=== PATIENT | male | born 1990 | race Caucasian/White ===

== ENCOUNTER 2023-03-09 13:29 | Outpatient (CLI) | payer BC, SELFPAY | END 2023-03-09 13:30 | disposition home or self-care (01) | LOC: NFLDREF 13:31 | PROVIDERS: PCP Family Medicine; Visit Provider Family Medicine | DX: R61 Generalized hyperhidrosis (principal); R73.03 Prediabetes; E66.9 Obesity, unspecified | CPT/HCPCS: 84443 ==

== ENCOUNTER 2023-08-21 12:41 | Emergency (ER) | payer BC, SELFPAY ==
[2023-08-21 12:47] VITALS: BP 162/109; PULSE 123; RESP 18; TEMP 35.6; O2SAT 98; BMI 31.6
--- NOTE | 2023-08-21 13:39 | ED.WOUNDLAC ---
HPI - Wound/Laceration General Chief Complaint: Laceration/Wound Stated Complaint: right hand laceration Time Seen by Provider: 08/21/23 13:16 History of Present Illness HPI narrative: This 32-year-old male comes in with a laceration to the palm of his right hand. He was using a screwdriver to pry something open in the screwdriver slipped causing a laceration on the palm of his hand. He comes in reporting not much pain but states that it continues to bleed. His last tetanus was administered 12 years ago. Related Data Previous Rx's Medication Instructions Recorded colchicine 0.6 mg capsule 0.6 mg PO QDAY #30 caps 05/04/23 Allergies Allergy/AdvReac Type Severity Reaction Status Date / Time No Known Allergies Allergy Unknown Verified 08/21/23 12:51 Review of Systems Status of ROS: Reports: 10 or more systems reviewed and unremarkable except as noted in History and below Narrative: Constitutional: No fevers, no weight gain or loss. Eyes: No discharge. No vision changes. HENT: No congestion, no sore throat, no ear pain. Cardiovascular: No chest pain, no palpitations. Respiratory: No shortness of breath, no wheezes, no cough. Gastrointestinal: No abdominal pain, no vomiting, no diarrhea. Genitourinary: No dysuria, no hematuria. Musculoskeletal: Normal range of motion. Skin: No rashes, no pruritis. Neurological: No dizziness, weakness, sensory change, speech change. Endo/Heme/Allergies: No bruising or bleeding. No polydipsia. Pysch: no suicidality, no anxiety, no insomnia. All other systems reviewed and are negative. [facility] Surgical History (Updated 05/14/22 @ 17:51 by Myrna Gurrola) History of hernia repair ?Z98.890 - Other specified postprocedural states (ICD-10) ?Z87.19 - Personal history of other diseases of the digestive system (ICD-10) Social History Smoking Status: Never smoker Little interest or pleasure in doing things: not at all Feeling down, depressed, or hopeless: not at all Exam Narrative: Exam Narrative: Constitutional: Well-developed, well-nourished, no acute distress. HEENT: Normocephalic, atraumatic. Neck: Normal range of motion. Nontender. Supple. Heart: Intact distal pulses. Lungs: No chest discomfort. No wheezes, rhonchi, or rales. Abdomen: Nontender. Back: Normal range of motion. Extremities: Normal range of motion. 1.5 cm linear laceration in the palm of the right hand. No nerve or tendon dysfunction. Skin: Intact. No rash. Warm. No erythema or pallor. Neurologic: No altered sensation. No weakness. Alert and oriented. Psychiatric: No suicidality. No anxiety or depression. No insomnia. Nursing notes and vitals signs are reviewed. Const: Vital Signs, click to edit/add: Vital Signs - 24 hr 08/21/23 12:47 Temperature 96.0 F L Pulse Rate [Right Pulse Oximeter] 123 H Respiratory Rate 18 Blood Pressure [Ri ght Upper Arm] 162/109 H Pulse Oximetry 98 Oxygen Delivery Me thod Room Air Course Vital Signs Vital signs: Initial Vital Signs Temperature 96.0 F L 08/21/23 12:47 Temperature Source Temporal Artery Scan 08/21/23 12:47 Pulse Rate 123 H 08/21/23 12:47 Pulse Rhythm Regular 08/21/23 12:47 Pulse Strength 2+ Slightly Diminished 08/21/23 12:47 Respiratory Rate 18 08/21/23 12:47 Blood Pressure 162/109 H 08/21/23 12:47 Blood Pressure Mean 126 H 08/21/23 12:47 Blood Pressure Position Sitting 08/21/23 12:47 Pulse Oximetry 98 08/21/23 12:47 Oxygen Delivery Method Room Air 08/21/23 12:47 Vital Signs Temperature 96.0 F L 08/21/23 12:47 Pulse Rate 123 H 08/21/23 12:47 Respiratory Rate 18 08/21/23 12:47 Blood Pressure 162/109 H 08/21/23 12:47 Pulse Oximetry 98 08/21/23 12:47 Oxygen Delivery Method Room Air 08/21/23 12:47 Temperature 96.0 F L 08/21/23 12:47 Pulse Rate 123 H 08/21/23 12:47 Respiratory Rate 18 08/21/23 12:47 Blood Pressure 162/109 H 08/21/23 12:47 Pulse Oximetry 98 08/21/23 12:47 Oxygen Delivery Method Room Air 08/21/23 12:47 Medications Administered Medications: Discontinued Medications Generic Name Dose Route Start Last Admin Trade Name Freq PRN Reason Stop Dose Admin Diphtheria/Tetanus/Acell Pertussis 0.5 ml 08/21/23 13:39 08/21/23 13:43 Tetanus/Diphth/Pertussis 0.5 Ml Syringe IM 08/21/23 13:40 0.5 ml .ONCE ONE Administration MDM - Wound/Laceration MDM Narrative Medical decision making narrative: This patient has a laceration to the palm of his right hand as described above. It does continue to lose bleeding as though he injured a vein. After anesthesia with 1% lidocaine the wound was cleansed and I placed 4 sutures in interrupted fashion using 4.0 Ethilon suture. This caused the bleeding to stop and approximated the wound edges nicely. Instructions regarding wound care were given with the need to return for suture removal in 7-10 days. A Band-Aid was applied. The patient did receive a tetanus vaccination today. Discharge Plan Discharge Clinical Impression: Laceration Patient Disposition: Home, Self-Care Condition: Improved Additional Instructions: Keep wound clean and dry. Return for suture removal in 7-10 days. Follow-up with MD otherwise as needed. Prescriptions: No Action colchicine 0.6 mg capsule 0.6 mg PO QDAY Qty: 30 11RF Patient Comments: just as needed Follow Up/Referrals: Reji Nance MD [Primary Care Provider] - Stand Alone Forms: [employer] Info Instructions
[2023-08-21] MEDS: TETANUS/DIPHTH/PERTUSSIS 0.5 ML SYRINGE IM (13:43)
[2023-08-21 13:56] VITALS: BP 162/109; PULSE 108; RESP 18; TEMP 35.6
== END 2023-08-21 13:58 | disposition home or self-care (01) ==
PROVIDERS: Emergency Provider Emergency Medicine Emergency Medical Services; PCP Family Medicine
DX: S61.411A Laceration without foreign body of right hand, initial encounter (principal); W29.8XXA Contact with other powered hand tools and household machinery, initial encounter; Z23 Encounter for immunization
CPT/HCPCS: 12001; 90471; 90715; 99283; 99284

== ENCOUNTER 2024-01-22 13:48 | Outpatient (CLI) | payer BC, SELFPAY | END 2024-01-22 13:49 | disposition home or self-care (01) | PROVIDERS: PCP Family Medicine; Visit Provider Family Medicine | DX: I10 Essential (primary) hypertension (principal); E78.5 Hyperlipidemia, unspecified; R73.03 Prediabetes; E66.9 Obesity, unspecified; M10.9 Gout, unspecified; F41.9 Anxiety disorder, unspecified | CPT/HCPCS: 80061; 82947 ==

== ENCOUNTER 2024-02-12 07:02 | Outpatient (CLI) | payer BC, SELFPAY | END 2024-02-12 07:03 | disposition home or self-care (01) | LOC: NFLDREF 11:39 | PROVIDERS: PCP Family Medicine; Visit Provider Family Medicine | DX: R73.03 Prediabetes (principal) | CPT/HCPCS: 80053; 82947 ==

== ENCOUNTER 2024-05-21 14:30 | Outpatient (CLI) | payer BC, SELFPAY ==
--- OUTSIDE RECORDS SUMMARY | 2024-05-24 18:43 | XMS_ITS | Clinical Summary ---
Author Organization [facility] Address [address] [place] [id number] Care Team Providers Care Calibration Checker Name Role Phone Elsewhere, Pcp Primary Care Provider Unavailabl e Source Comments Patient records contain information from all sites at [facility]. For routine questions regarding patient records, call [phone] during business hours, M-F 8:00 AM - 5:00 PM Central Time. Record requests for emergency care only can be directed to [phone] at any time.[facility] Allergies Active Allergy Reactions Criticality Noted Date Comments No Known Allergies Other (see comments) 012 Medications amLODIPine (NORVASC) 2.5 mg tablet Take 2 tablets (5 mg total) by mouth daily for 7 days. 14 tablet 9 Active Additional Information Patient not taking.Reported on 12/07/2023 colchicine (COLCRYS) 0.6 mg tablet 4 Active acetaminophen (TYLENOL) 500 mg tablet Take 2 tablets (1,000 mg total) by mouth every 6 (six) hours as needed for pain. 4 Active oxyCODONE (ROXICODONE) 5 mg immediate release tabletIndicatio ns:Acute Pain Exception Take 1 tablet (5 mg total) by mouth every 4 (four) hours as needed for moderate pain or score 4-6 of 10 Indication: Acute Pain Exception. 8 tablet 08/25/2023 5:07 PM ADMINISTRATIVE SERVICES COORDINATOR 4 Active mupirocin (Bactroban) 2 % ointmentIndicat ions:Paronychia Finger Left Apply 1 Application topically 3 (three) times a day. Apply to left thumb. 22 g 4 Active Active Problems Problem Noted Date Diagnosed Date Pain Joint Hand Right 09/04/2023 Bite Dog Hand Open Initial Right 08/24/2023 Infection Hand 08/24/2023 Hypertension Essential Primary 04/02/2018 Encounters Date Type Department Care Team Description 04/04/2024 4:30 PM CDT Office Visit Department of Family Medicine, [facility], in [place], [place] [address] [place] [address] Provider, Kat Verma APRN, C.N.P., D.N.P. Paronychia Finger Left (Primary Dx) Discharge Disposition: Home or Self Care 04/03/2024 Nurse Triage Department of Family Medicine, [facility], in [place], [place] [address] [place] [phone] Tory Andres R.N. Finger Pain from Last 3 Months Immunizations Name Administration Dates Next Due PPSV23 05/20/2021 Tdap 08/21/2023,05/30/2012 influenza vaccine quad (FLUZ ONE/FLUARIX) (6 months and older)(PF) 05/20/2021,07/23/2018 Family History Medical History Relation Name Comments Hypertension Brother Hypertension Mother Relation Name Status Comments Brother Mother Social History Tobacco Use Types Packs/Day Years Used Date Smoking Tobacco: Never Smokeless Tobacco: Never Tobacco Cessation:Counseling Given: No Alcohol Use Standard Drinks/Week Comments Yes 1 (1 standard drink = 0.6 oz pur e alcohol) [facility] Utilities Answer Date Recorded In the past 12 months has [facility] [employer], oil, or water [email or web address] threatened to shut off services in your home? No 08/24/2023 Humiliation, Afraid, Rape, and Kick questionnair e Answer Date Recorded Within the last year, have y ou been afraid of your partner or ex-partner? No 08/24/2023 Within the last year, have y ou been humiliated or emotionally abused in other ways by your partner or ex-partner? No Within the last year, have y ou been kicked, hit, slapped, or otherwise physically hurt by your partner or ex-partner? No 08/24/2023 Within the last year, have y ou been raped or forced to have any kind of sexual activity by your partner or ex-partner? No 08/24/2023 PHQ-2 Answer Date Recorded PHQ-2 Score 0 08/23/2023 Hunger Vital Sign Answer Date Recorded Within the past 12 months, y ou worried that your food would run out before you got the money to buy more. Never true 08/24/19 24 Within the past 12 months, t he food you bought just didn't last and you didn't have money to get more. Never true 08/24/2023 PRAPARE - Transportation Answer Date Re corded In the past 12 months, has l ack of transportation kept you from medical appointments or from getting medications? No 08/04 In the past 12 months, has l ack of transportation kept you from meetings, work, or from getting things needed for daily living? No 08/24/2023 Nutrition Answer Date Recorded Nutrition: EVOO Fat Source 13 01/27 Nutrition: Servings of Fruits/Vegetables per Day Not on file 01/28/2020 Dental Answer Date Recorded Dental: Regular Dentist Unknown 09/05/19 21 Housing Stability Answer Date Recorded What is your living situation today? I have a [facility] place to live 08/24/2023 Sex and Gender Information Value Date Recorded Sex Assigned at Male 10/24/2023 12:24 PM CDT Legal Sex Male 5:04 PM ADMINISTRATIVE SERVICES COORDINATOR Gender Identity Male 10/24/2023 12:24 PM CDT Sexual Orientation Straight 10/24/2023 12 :24 PM CDT Last Filed Vital Signs Vital Sign Reading Time Taken Comments Blood Pressure 127/85 04/04/2024 4:02 PM CDT Pulse 72 04/04/2024 4:02 PM CDT Temperature 36.1 C (97 F) 04/04/2024 4:02 PM CDT Respiratory Rate 16 08/25/2023 4:40 PM ADMINISTRATIVE SERVICES COORDINATOR Oxygen Saturation 98% 08/25/2023 4:40 PM ADMINISTRATIVE SERVICES COORDINATOR Inhaled Oxygen Concentration - - Weight 96.9 kg (213 lb 10 oz) 04/04/2024 4:02 PM CDT Height 177.8 cm (5' 10) 12/07/2023 1:57 PM CDT Body Mass Index 30.65 12/07/2023 1:57 PM CDT Plan of Treatment Health Maintenance Due Date Last Done Comments HIV Screening 1988 Hepatitis C Screening 1988 Lipid (Cholesterol) Screening 1988 Hepatitis B Vaccines (1 of 3 - 19+ 3-dose series) 11/12/2007 COVID-19 Vaccine ( - 2023-2 5 season) 2024 Influenza Vaccine (#1) 2024 , 07/23/2018 Office Visit for Blood Pressure Check / Re-check 04/04/2025 04/04/2024 DTaP,Tdap,and Td Vaccines (3 - Td or Tdap) 08/21/2033 08/21/2023, 05/30/2012 Pneumococcal vaccine (0-64 years) Aged Out 05/20/2021 No longer eligible b ased on patient's age to complete this topic Depression Screening (Annual PHQ-2) Completed 08/23/2023, 08/23/2023 HPV Vaccines Aged Out No longer eligi ble based on patient's age to complete this topic IPV Vaccines Aged Out No longer eligi ble based on patient's age to complete this topic Insurance [facility] Care Teams Calibration Checker Relationship Specialty Start Date End Date Elsewhere, Pcp PCP - General Family Medicine 04/02/18
--- OUTSIDE RECORDS SUMMARY | 2024-05-24 18:43 | XMS_ITS | Referral Summary ---
Author Organization [facility] Address [address] [place] [address] Care Team Providers Care Shrinking Machine Operator Name Role Phone Elsewhere, Pcp Primary Care Provider Unavailabl e Source Comments Patient records contain information from all sites at [facility]. For routine questions regarding patient records, call [phone] during business hours, M-F 8:00 AM - 5:00 PM Central Time. Record requests for emergency care only can be directed to [phone] at any time.[facility] Encounters Date Type Department Care Team Description 04/04/2024 4:30 PM CDT Office Visit Department of Family Medicine, [facility], in [place], [place] [address] [place] [address] Provider, Kat Verma APRN, C.N.P., D.N.P. Paronychia Finger Left (Primary Dx) Discharge Disposition: Home or Self Care 04/03/2024 Nurse Triage Department of Family Medicine, [facility], in [place], [place] [address] [place] [address] Tory Andres, RSean Finger Pain from Last 3 Months Allergies Active Allergy Reactions Criticality Noted Date [...] Pain Exception. 8 tablet 08/25/2023 5:07 PM PRIVATE BRANCH EXCHANGE SERVICE ADVISOR 4 Active mupirocin (Bactroban) 2 % ointmentIndicat ions:Paronychia Finger Left Apply 1 Application topically 3 (three) times a day. Apply to left thumb. 22 g 4 Active Active Problems Problem Noted Date Diagnosed Date Pain Joint Hand Right 09/04/2023 Bite Dog Hand Open Initial Right 08/24/2023 Infection Hand 08/24/2023 Hypertension Essential Primary 04/02/2018 Immunizations Name Administration Dates Next Due PPSV23 05/20/2021 Tdap 08/21/2023,05/30/2012 influenza vaccine quad (FLUZ ONE/FLUARIX) (6 months and older)(PF) 05/20/2021,07/23/2018 Social History Tobacco Use Types Packs/Day Years Used Date Smoking Tobacco: Never Smokeless Tobacco: Never Tobacco Cessation:Counseling Given: No Alcohol Use Standard Drinks/Week Comments Yes 1 (1 standard drink = 0.6 oz pur e alcohol) [facility] Utilities Answer Date Recorded In the past 12 months has [facility] [employer], [employer], oil, or water [employer] threatened to shut off services in your [...] your living situation today? I have a [facility] place to live 08/24/2023 Sex and Gender Information Value Date Recorded Sex Assigned at Male 10/24/2023 12:24 PM CDT Legal Sex Male 5:04 PM PRIVATE BRANCH EXCHANGE SERVICE ADVISOR Gender Identity Male 10/24/2023 12:24 PM CDT Sexual Orientation Straight 10/24/2023 12 :24 PM CDT Last Filed Vital Signs Vital Sign Reading Time Taken Comments Blood Pressure 127/85 04/04/2024 4:02 PM CDT Pulse 72 04/04/2024 4:02 PM CDT Temperature 36.1 C (97 F) 04/04/2024 4:02 PM CDT Respiratory Rate 16 08/25/2023 4:40 PM PRIVATE BRANCH EXCHANGE SERVICE ADVISOR Oxygen Saturation 98% 08/25/2023 4:40 PM PRIVATE BRANCH EXCHANGE SERVICE ADVISOR Inhaled Oxygen Concentration - - Weight 96.9 kg (213 lb 10 oz) 04/04/2024 4:02 PM CDT Height 177.8 cm (5' 10) 12/07/2023 1:57 PM CDT Body Mass Index 30.65 12/07/2023 1:57 PM CDT Plan of Treatment Not on file Insurance [facility] Care Teams Shrinking Machine Operator Relationship Specialty Start Date End Date Elsewhere, Pcp PCP - General Family Medicine 04/02/18
--- OUTSIDE RECORDS SUMMARY | 2024-05-24 18:43 | XMS_ITS | Encounter Summary ---
Author Organization [facility] Address [address] [place] [address] Care Team Providers Care Aix System Administrator Name Role Phone Elsewhere, Pcp Primary Care Provider Unavailabl e Encounter Details Date Type Department Care Team (Latest Contact Info) Description 08/24/2023 Intake [facility] Social History Tobacco Use Types Packs/Day Years Used Date Smoking Tobacco: Never Smokeless Tobacco: Never Alcohol Use Standard Drinks/Week Comments No 0 (1 standard drink = 0.6 oz pur e alcohol) [facility] Utilities Answer Date Recorded In the past 12 months has [facility] [employer], gas, oil, or water [employer] threatened to shut off services in your [...] your living situation today? I have a [facility] place to live 08/24/2023 Sex and Gender Information Value Date Recorded Sex Assigned at Male 10/24/2023 12:24 PM CDT Legal Sex Male 5:04 PM SODA ROOM OPERATOR Gender Identity Male 10/24/2023 12:24 PM CDT Sexual Orientation Straight 10/24/2023 12 :24 PM CDT documented as of this encounter Plan of Treatment Not on file documented as of this encounter Visit Diagnoses Not on filedocumented in this encounter Care Teams Aix System Administrator Relationship Specialty Start Date End Date Elsewhere, Pcp PCP - General Family Medicine 04/02/18 documented as of this encounter
--- OUTSIDE RECORDS SUMMARY | 2024-05-24 18:43 | XMS_ITS | Encounter Summary ---
Author Organization [facility] Address [address] [place] [address] Care Team Providers Care Hotel Concierge Name Role Phone Elsewhere, Pcp Primary Care Provider Unavailabl e Reason for Visit * Reason Onset Date Comments Finger Pain 04/03/2024 Encounter Details Date Type Department Care Team (Late st Contact Info) Description 04/03/2024 Nurse Triage Department of Family Medicine, [facility], in [place], [place] [address] [place] [phone] Tory Andres, RJigneshNJignesh Finger Pain Social History Tobacco Use Types Packs/Day Years Used Date Smoking Tobacco: Never Smokeless Tobacco: Never Alcohol Use Standard Drinks/Week Comments Yes 1 (1 standard drink = 0.6 oz pur e alcohol) [facility] Utilities Answer Date Recorded In the past 12 months has e electric, gas, oil, or water [employer] threatened to shut off services in your [...] Date Recorded Dental: Regular Dentist Unknown 09/05/19 Housing Stability Answer Date Recorded What is your living situation today? I have a [facility] place to live 08/24/2023 Sex and Gender Information Value Date Recorded Sex Assigned at Male 10/24/2023 12:24 PM CDT Legal Sex Male 5:04 PM DIRECTOR OF FEDERAL SALES Gender Identity Male 10/24/2023 12:24 PM CDT Sexual Orientation Straight 10/24/2023 12 :24 PM CDT documented as of this encounter Miscellaneous Notes * Telephone Encounter - Tory Andres R.N. - 04/03/2024 2:43 PM CDT Chief Complaint / Reason for Call Patient is a 33 y.o. male calling regarding Finger Pain. Assessment Concern: Left thumb infection for the last couple of weeks. Red around the nail, has some drainage. Present for: 2 weeks Home cares tried: soaks, antibiotic ointment Calling to request: appointment The recommended disposition is See a health care provider within 24 hours. Encouraged to call back with questions, concerns or new/worsening symptoms Care Advice Patient/Caregiver understands and will follow care advice?: Yes, able to teach back Wound [id number] Nurse Tory Gonzales Apr 03, 2024 02:48 PM Care Advice SEE PCP WITHIN 24 HOURS: WOUND INFECTION - TREATMENT WITH WARM SOAKS OR LOCAL HEAT: * For OPEN cuts, scrapes or wounds: Soak in warm water or put a warm wet cloth on wound for 20 minutes once a day. Use a warm salt water (saline) solution containing 2 teaspoons (10 ml) table salt per quart (1 liter) of water. * For CLOSED or sutured cuts or incisions: Put a heating pad or warm, wet washcloth to the reddenedarea for 20 minutes 3 times a day. Caution: Avoid any moisture to the sutured wound for first 24 hours. Never soak the wound until all sutures are removed. ANTIBIOTIC OINTMENT: * Put a small amount of antibiotic ointment on the wound once a day for 3 days. * You can get this kzzx-ege-brwdduq (OTC) at a drugstore. * Use Bacitracin ointment (OTC in [place] or Polysporin ointment (OTC in [place]) or one that you already have. * Read the package instructions on all medicines that you use. PAIN MEDICINES: * For pain relief, you can take either acetaminophen, ibuprofen, or naproxen. * They are julc-wmf-yxijxkj (OTC) pain drugs. You can buy them at the drugstore. * ACETAMINOPHEN - REGULAR STRENGTH TYLENOL: Take 650 mg (two 325 mg pills) by mouth every 4 to 6 hours as needed. Each Regular Strength Tylenol pill has 325 mg of acetaminophen. The most you should take is 10 pills a day (3,250 mg total). Note: In [place], the maximum is 12 pills a day (3,900 mg total). * ACETAMINOPHEN - EXTRA STRENGTH TYLENOL: Take 1,000 mg (two 500 mg pills) every 6 to 8 hours as needed. Each Extra Strength Tylenol pill has 500 mg of acetaminophen. The most you should take is 6 pills a day (3,000 mg total). Note: In [place], the maximum is 8 pills a day (4,000 mg total). * IBUPROFEN (E.G., MOTRIN, ADVIL): Take 400 mg (two 200 mg pills) by mouth every 6 hours. The most you should take is 6 pills a day (1,200 mg total). * NAPROXEN (E.G., ALEVE): Take 220 mg (one 220 mg pill) by mouth every 8 to 12 hours as needed. Youmay take 440 mg (two 220 mg pills) for your first dose. The most you should take is 3 pills a day (660 mg total). Note: In [place], the maximum is 2 pills a day (one every 12 hours; 440 mg total). * Use the lowest amount of medicine that makes your pain better. CALL BACK IF: * Fever occurs * You become worse Patient was provided scheduling phone number, plan of care, and transferred to scheduling per current regional process. and Endpoint: 24 hours. Reason for Visit: thumb infection. Video Visit: okay Reason for Disposition [1] Wound > 48 hours old AND [2] it becomes more tender Protocols used: Wound [id number] documented in this encounter Plan of Treatment Not on file documented as of this encounter Visit Diagnoses Not on filedocumented in this encounter Care Teams Hotel Concierge Relationship Specialty Start Date End Date Elsewhere, Pcp PCP - General Family Medicine 04/02/18 documented as of this encounter
--- OUTSIDE RECORDS SUMMARY | 2024-05-24 18:43 | XMS_ITS | Encounter Summary ---
Author Organization [facility] Address [address] [place] [id number] Care Team Providers Care Hamper Maker Name Role Phone Elsewhere, Pcp Primary Care Provider Unavailabl e Reason for Visit * Reason Comments Finger Injury Left thumb ingrown n ail - infection for the last couple of weeks. Red around the nail, has some drainage. * Appointment Request (Routine) - Closed Specialty Diagnoses / Procedures Referred By Jana campos Referred To Contact Family Medicine Referral ID Status Reason Start Date Expiration Date Visits Re quested Visits Authorized [id number] Closed 04/03/2024 04/03/2025 1 1 Encounter Details Date Type Department Care Team (Late st Contact Info) Description 04/04/2024 4:30 PM CDT Office Visit Department of Family Medicine, [facility], in [place], [place] [address] [place] [phone] Provider, Will Placeholder Kat Amezcua APRN, C.N.P., D.N.P. [address] [place] [phone] Paronychia Finger Left (Primary Dx) Discharge Disposition: Home or Self Care Social History Tobacco Use Types Packs/Day Years Used Date Smoking Tobacco: Never Smokeless Tobacco: Never Tobacco Cessation:Counseling Given: No Alcohol Use Standard Drinks/Week Comments Yes 1 (1 standard drink = 0.6 oz pur e alcohol) [facility] Utilities Answer Date Recorded In the past 12 months has th e electric, gas, oil, or water company threatened to shut off services in your [...] your living situation today? I have a [facility] place to live 08/24/2023 Sex and Gender Information Value Date Recorded Sex Assigned at Male 10/24/2023 12:24 PM CDT Legal Sex Male 5:04 PM [employer] Gender Identity Male 10/24/2023 12:24 PM CDT Sexual Orientation Straight 10/24/2023 12 :24 PM CDT documented as of this encounter Last Filed Vital Signs Vital Sign Reading Time Taken Comments Blood Pressure 127/85 04/04/2024 4:02 PM CDT Pulse 72 04/04/2024 4:02 PM CDT Temperature 36.1 C (97 F) 04/04/2024 4:02 PM CDT Respiratory Rate - - Oxygen Saturation - - Inhaled Oxygen Concentration - - Weight 96.9 kg (213 lb 10 oz) 04/04/2024 4:02 PM CDT Height - - Body Mass Index 30.65 12/07/2023 1:57 PM CDT documented in this encounter Patient Instructions * Patient Instructions* Kat Amezcua APRN C.N.P., D.N.P. - 04/04/2024 4:30 PM CDT Thank you for allowing me to participate in your care today! 1) Dilute vinegar (acetic acid) soaks for 5 to 10 minutes, 2 to 3 times daily 1:40 dilution (1 tablespoon distilled white vinegar to 3 cups water) 2) Use the Bactroban 3 times a day until resolved and apply Band-Aid. 30 If not improving, follow back up. * Attachments The following attachments cannot be sent through Care Everywhere. * Mupirocin (On the skin) (Estonian) documented in this encounter Progress Notes * Kat Amezcua APRN, C.N.P., D.N.P. - 04/04/2024 4:30 PM CDT SUBJECTIVE CHIEF COMPLAINT / REASON FOR VISIT Javier Avendano is a 33 y.o. male who presents for evaluation of Finger Injury ( Left thumb ingrown nail - infection for the last couple of weeks. Red around the nail, has some drainage.). HISTORY OF PRESENT ILLNESS Javier Avendano is a 33 y.o. male who presents for evaluation of left thumb redness and swelling for the last 2 weeks. He has been doing finger soaks and antibiotic ointment. Patient has been using saltwater soaks and applying triple antibiotic ointment and covering with a Band-Aid. He was concerned that possibly he has developed an infection in the fingernail. He does continue to bump the finger causing pain to the fingernail bed. He does have some drainage to the fingernail bed. He has no additional complaints today. He was denies any fever, chills or sweats. Patient does tend to bite his fingernails extremely short. Reviewed medications, allergies, problem list, medical, family, surgical and tobacco history. REVIEW OF SYSTEMS A brief review of systems was negative except for that mentioned in the history of present of illness. Current Outpatient Medications Medication Sig acetaminophen (TYLENOL) 500 mg tablet Take 2 tablets (1,000 mg total) by mouth every 6 (six) hours as needed for pain. amLODIPine (NORVASC) 2.5 mg tablet Take 2 tablets (5 mg total) by mouth daily for 7 days. (Patient not taking: Reported on 12/07/2023) colchicine (COLCRYS) 0.6 mg tablet oxyCODONE (ROXICODONE) 5 mg immediate release tablet Take 1 tablet (5 mg total) by mouth every 4 (four) hours as needed for moderate pain or score 4-6 of 10 Indication: Acute Pain Exception. Allergies Allergen Reactions No Known Allergies Other (see comments) OBJECTIVE PHYSICAL EXAMINATION Vitals: 04/04/24 1602 BP: 127/85 Pulse: 72 Temp: 36.1 ??C Body mass index is 30.65 kg/m??. General: Patient is in no distress. Capable of full communication without difficulty. Patient is polite and cooperative. Left hand: Serosanguineous drainage from the medial side of the left thumb along the nail bed. Patient's fingernails are cut extremely short. Soaked finger in Vashe wash in irrigated drainage from fingernail bed. Removed excess tissue from medial side of nailbed. No significant pain to site. Mild erythema surrounding the nail bed. No overlying warmth to the area of erythema applied bacitracin and a Band-Aid to the area after completion. DIAGNOSTICS None during this ASSESSMENT / PLAN #1 Paronychia Finger Left - mupirocin (Bactroban) 2 % ointment; Apply 1 Application topically 3 (three) times a day. Apply toleft thumb., Starting Serena 04/04/2024, Normal Patient seen in clinic today for concerns of an infection to his left thumb. Patient has evidence of a paronychia. Will treat with Bactroban and provided instructions for diluted vinegar soaks. Recommend treatment until resolution of paronychia. Recommended that he not cut his fingernails any shorter. Discussed side effects of medication. Reassurance provided that no red flags were identified on the physical exam. Patient verbalized understanding and was in agreement with the above plan. All questions and concerns were discussed and addressed. Patient will return to the clinic if symptoms worsen or fail to improve. Kat Amezcua APRN, C.N.P., D.N.P. documented in this encounter Plan of Treatment Not on file documented as of this encounter Visit Diagnoses Diagnosis Paronychia Finger Left- Primary documented in this encounter Care Teams Hamper Maker Relationship Specialty Start Date End Date Elsewhere, Pcp PCP - General Family Medicine 04/02/18 documented as of this encounter
--- OUTSIDE RECORDS SUMMARY | 2024-05-24 18:43 | XMS_ITS ---
Author Organization [facility] Address [address] [place] [id number] Care Team Providers Care City Marshal Name Role Phone Unavailable Unavailable Unavailable Surgery Details Not on file Complications Check Surgery Details section. Procedure Estimated Blood Loss Check Surgery Details section. Procedure Findings Check Surgery Details section. Procedure Specimens Taken Check Surgery Details section.
== END 2024-05-21 14:31 | disposition home or self-care (01) ==
LOC: NFLDREF 05-24 18:41
PROVIDERS: PCP Family Medicine; Referring Provider Family Medicine; Visit Provider Family Medicine
DX: E11.9 Type 2 diabetes mellitus without complications (principal); I10 Essential (primary) hypertension
CPT/HCPCS: 82043; 82570

== ENCOUNTER 2024-08-26 09:06 | Outpatient (CLI) | payer BC, SELFPAY | END 2024-08-26 09:07 | disposition home or self-care (01) | LOC: NFLDREF 08-28 03:50 | PROVIDERS: PCP Family Medicine; Referring Provider Family Medicine; Visit Provider Family Medicine | DX: E78.5 Hyperlipidemia, unspecified (principal); E11.9 Type 2 diabetes mellitus without complications | CPT/HCPCS: 80061 ==

== ENCOUNTER 2025-02-06 16:10 | Outpatient (CLI) | payer BC, SELFPAY | END 2025-02-06 16:11 | disposition home or self-care (01) | LOC: NFLDREF 02-12 12:38 | PROVIDERS: PCP Family Medicine; Referring Provider Family Medicine; Visit Provider Family Medicine | DX: E11.65 Type 2 diabetes mellitus with hyperglycemia (principal); E78.5 Hyperlipidemia, unspecified; I10 Essential (primary) hypertension | CPT/HCPCS: 80053; 80061; 82043; 82570 ==